=== PATIENT | female | born 1950 | race Caucasian/White ===

== ENCOUNTER 2017-04-28 15:40 | Inpatient (IN) | payer OTHER ==
[~2017-04-28] VITALS: Ht 170.1 cm; Wt 113.4 kg
--- NOTE | ~2017-04-28 | PR ---
[place], [place] PROGRESS NOTE [id number] UN[facility] #: [id number] ROOM: 316 DOCTOR: Clover AUGUSTINE,ROBBI BIRTHDATE: [birth year] DOS: 05/06/2017 SUBJECTIVE: The patient seen and spoke with the staff. Per staff, the patient is taking her medication. No behavioral problems or issues, doing well. Medication compliant. The patient was in the [place] chair. She was in the TV area watching TV. She reports doing well, did not engage in long conversation. She was not in any distress. MENTAL STATUS EXAMINATION: The patient was pleasant, cooperative. Described his mood as "well." Affect, mood congruent. She denied auditory or visual hallucination. No delusion or paranoia noted. She denied suicidal ideation, intent or plan. She also denied any homicidal ideation, intent or plan. ASSESSMENT: Major depressive disorder, recurrent, severe. PLAN: 1. Continue current medication and care. 2. A 1:1 therapy. Psychoeducation, coping skill. 3. Encourage activity and groups. ROBBI AUGUSTINE MD CM:JOVANI [id number] Clover AUGUSTINE 05/06/17 2343 interface
--- NOTE | ~2017-04-28 | DS ---
[place], [place] DISCHARGE SUMMARY NAME: EDITH AWAD UNIT #: [id number] ROOM: 316 DOCTOR: LANE IGLESIAS MD BIRTHDATE: [birth year] DOS: 05/10/2017 ADDENDUM CHIEF COMPLAINT: "I feel better Dr. Iglesias." SUMMARY OF THE VISIT: The patient was interviewed as she reclined in the dining area. She had completed her breakfast. She reports that she slept well and feels well. She denies any issues, stating that she feels better with her medicines as they are now and is ready to go back. She still voices a displeasure with the [facility]. I did discuss with her, her options of discussing with the family welfare social work professor there to help her find alternative placement and that if she is unhappy with any of the nursing issues, she has the right to discuss this with the handbell choir director of the facility. She nodded in approval. MENTAL STATUS: She is alert and oriented with gaps. Mood does seem to be euthymic. Affect appropriate. There is no hypomania or pj. There are no gross psychotic symptoms. Memory has some short term gaps. DISCHARGE DIAGNOSIS: As per the previous note and disposition. I will follow her upon her admission. LANE IGLESIAS MD CM:DISCHARG [id number]GL[address] MD 05/11/17 1015 interface
--- NOTE | ~2017-04-28 | PR ---
[place], [place] PROGRESS NOTE NAME: EDITH AWAD UNIT #: [id number] ROOM: 316 DOCTOR: LANE GUTIERREZ MD BIRTHDATE: [birth year] DOS: 05/02/2017 CHIEF COMPLAINT: "They had me sitting on plastic all day and now I have a blister." SUMMARY OF THE VISIT: The patient was interviewed in the dining area. She continues to be somewhat labile and jumps from topic to topic. She was fixated on sitting on plastic. When I brought up possibly returning back to [facility], she became very upset with that idea and stated she was hoping to be able to go someplace else. Nurses report she continues to exhibit extreme mood lability and at times can be very bizarre in her comments. She has tolerated the medication regimen well and I see no tardive dyskinesia, extrapyramidal symptoms or any other type of side effects. MENTAL STATUS: She is alert and oriented with gaps. Mood does seem to still be labile. Affect at times is inappropriate. There are mild hypomanic symptoms. I did not elicit any psychotic symptoms during my interview. Memory has gaps. PLAN: I will load with Invega Sustenna 156 mg IM now, maintaining her on her oral Invega of 9 mg in the morning. We will reload shortly thereafter with another 156 mg to sustain a blood level. Plan to return to the [facility] or an alternative facility when psychiatrically stable. LANE GUTIERREZ MD CM:PNTRANS [id number] GUT[address]Z MD 05/02/1704 interface
--- NOTE | ~2017-04-28 | CON ---
[place], [place] REPORT OF CONSULTATION NAME: EDITH AWAD UNIT #: [id number] ROOM: 316 DOCTOR: RENEE NAZARIO ED.D (MICHELLE) BIRTHDATE: [birth year] DOS: 05/01/2017 HISTORY OF PRESENT ILLNESS: The patient is a 66-year-old female who is a resident of [facility] in [place], [place]. She is presently on the Behavioral Health Unit at [facility]. This patient states she is and she has no children. She does have 1 brother and 1 sister. She formerly worked in the [employer] department in the [employer]. Her family physician was Dr. Norton, but she states he left his office practice. Her medical history is pertinent for seizure disorder, hypertension, GERD, sciatica and schizoaffective disorder. Her medications Include insulin, Protonix, albuterol, metoprolol, vitamin D, lisinopril, Invega and Remeron. She denies any substance abuse issues whatsoever. This patient was awake, alert and oriented in all three spheres. She knew she was in [facility] and she knew the date. She denies any suicidal ideation or plan. She does not appear to be actively hallucinating, but she does have delusional thoughts. She has some delusional thoughts regarding her family physician and also her living situation. These are more related to her schizoaffective disorder as opposed to any type of dementia in my opinion. She is competent to make informed healthcare decisions and she does want to have a power of mergers and acquisitions attorney appointed, who will either be her brother or her sister. I suggested that would be a very good idea. In the meantime, she is competent to make informed healthcare decisions. DIAGNOSIS: Schizoaffective disorder. RECOMMENDATIONS: The patient is competent and should have a durable healthcare power of mergers and acquisitions attorney appointed in the event that she would need one in the future. Thank you very much for this consult. RENEE NAZARIO ED.D CM:CONSTR:REPORT OF CONSULTATION 1017 05/01/[address] GUTIERREZ MD
--- NOTE | ~2017-04-28 | WRIGHTHP ---
[place], [place] PATIENT HISTORY AND PHYSICAL EXAM NAME: EDITH AWAD UNIT #: [id number] ROOM: 311 DOCTOR: LANE GUTIERREZ MD BIRTHDATE: [birth year] DOS: 04/29/2017 CHIEF COMPLAINT: "They sent me here from that rehab place." HISTORY OF PRESENT ILLNESS: This is a 66-year-old white female who is a resident of the [facility]. The patient has been increasingly more depressed and despondent over the last week or 2 prior to this admission. On the day of admission, the patient began voicing extreme suicidal thoughts and later stated she had a plan and was going to rip cords out of the wall and tied them around her neck and hang herself. The patient was initially admitted here because of the depression and the suicidal thoughts; however, following her admission, nurses have reported that she is experiencing significant visual and auditory hallucinations. She has been seeing God and pulled God literally out of the jaquan to be down here on the ground. She has been moving out of the way for unforeseen others and she has been caught talking under her breath to unforeseen others as well. She is quite bizarre and very paranoid. She is admitted now to rule out organic factors and to stabilize on medication. PAST MEDICAL HISTORY: Remarkable for gait disturbance, unspecified disorder of the adrenal gland, seizure disorder, hypertension, GERD, sciatica, thyrotoxicosis and diabetes. MENTAL STATUS: The patient is alert and oriented. Mood seems very labile. Her responses are inappropriate and she darts from subject to subject. She is very hard to get to talk about the here and now. Her responses for the most part were inappropriate. I was not able to elicit any psychotic symptoms, but she was very guarded and suspicious of my presence and was not certain who I was. Memory has some gaps. DIAGNOSIS: Schizoaffective disorder. PLAN: I will go ahead and start Invega 6 mg in the morning. I have already started her on Remeron 15 mg at night to combat depression and aid sleep and improve appetite. We will engage her in individual and hodge milieu activity with the ultimate plan to return back to the [facility] or an alternative placement when stable. [place], [place] PATIENT HISTORY AND PHYSICAL EXAM NAME: EDITH AWAD UNIT #: [id number] ROOM: 311 DOCTOR: LANE GUTIERREZ MD BIRTHDATE: [birth year] [address] MD CM:HISPHYS:PATIENT HISTORY AND PHYSICAL EXAMINATION [address] GUT[address]Z MD 04/29/17903 interface
--- NOTE | ~2017-04-28 | PR ---
[place], [place] PROGRESS NOTE [id number] UNIT #: [id number] ROOM: 316 DOCTOR: Clover AUGUSTINE,ROBBI BIRTHDATE: [birth year] DOS: 05/07/2017 PSYCHIATRIC PROGRESS NOTE SUBJECTIVE: The patient seen and spoke with the staff. Per staff, the patient is more alert, still not walking and digging on some injured skin that she had on her body. The patient was pleasant, cooperative. She was on her bed. She said that she is doing well, says she does not know why she cannot walk anymore, but she will give her shot today. She is taking her medication regularly. She denied any side effect of it. She reports good sleep and appetite. MENTAL STATUS EXAMINATION: Pleasant, cooperative. Described her mood as "well." Affect, mood congruent. Thought processes are goal directed. No flight of ideas, loosening of association. She denies auditory or visual hallucination. No delusion or paranoia noted. She denies suicidal ideation, intent or plan. She also denied homicidal ideation, intent or plan. ASSESSMENT: Major depressive disorder, recurrent, severe. PLAN: 1. Continue current medication and care. 2. Encourage activities and groups. 3. Collateral information. 4. Final medication management and discharge plan with the regular team. ROBBI AUGUSTINE MD CM:JOVANI [phone] Clover AUGUSTINE 05/07/172349 interface
--- NOTE | ~2017-04-28 | PR ---
[place], [place] PROGRESS NOTE NAME: EDITH AWAD UNIT #: [id number] ROOM: 316 DOCTOR: LANE GUTIERREZ MD BIRTHDATE: [birth year] DOS: 05/08/2017 CHIEF COMPLAINT: "I had a nice weekend." SUMMARY OF THE VISIT: The patient was interviewed in the dining area. She had already eaten her breakfast and she was sitting there, watching television. She engaged readily in conversation and seemed fairly goal directed with me. Nurses report a slight trend toward improvement, although she still has episodes when she talks rather bizarrely and is very labile. These have become less frequent and less intense. She is tolerating the current medication regimen well. On mental status, she is alert and oriented with some time gaps. Mood does seem to be strongly trending towards euthymia. Affect is more appropriate. There is no pj or hypomania. There are no overt auditory or visual hallucinations. No delusions, no paranoia. Short term memory, intermediate, and porter baggage for the most part are intact. PLAN: I will reload with Invega Sustenna 156 mg IM today and then plan to maintain her on May 29 with a similar dose. Plan is to discharge then when psychiatrically stable. LANE GUTIERREZ MD CM:PNTRANS [id number] GUT[address]Z MD 05/08/17 1012 interface
--- NOTE | ~2017-04-28 | PR ---
[place], [place] PROGRESS NOTE NAME: EDITH AWAD UNIT #: [id number] ROOM: 316 DOCTOR: MANSI ESCALANTE,RENEE ORTEGA) BIRTHDATE: [birth year] DOS: 05/03/2017 SUBJECTIVE: At the present time, this patient is clearly delusional. In my opinion, she is not competent to make informed healthcare decisions or sign a durable power of commercial attorney for healthcare. I did complete guardianship papers for this patient, which will then be sent to the probate court in [facility]. I also discussed this at length with the patient's brother who will most likely be appointed guardian. RECOMMENDATION: In my opinion, this patient is not competent to make informed healthcare decisions. DIAGNOSIS: Schizoaffective disorder. Thank you very much for this consultation. RENEE NAZARIO ED.D CM:JOVANI [phone] NAZARIO ED.D (BOB) 05/03/172118 interface
--- NOTE | ~2017-04-28 | DS ---
[place], [place] [facility]CHARGE [id number] UNIT #: [id number] ROOM: 316 DOCTOR: LANE GUTIERREZ MD BIRTHDATE: [birth year] DOS: 05/09/2017 CHIEF COMPLAINT: "They sent me here from that rehab place." HISTORY OF PRESENT ILLNESS: This is a 66-year-old white female who is a resident of the [facility]. The patient had been increasingly more depressed and despondent over the last 2 weeks prior to this admission to the [facility] unit. The patient has been voicing extreme suicidal thoughts and then started stating that she had a plan and she was going to rip cords out of the wall and tie them around her neck and hang herself. When nurses were not monitoring her closely, she did attempt this and that she had to be redirected on multiple times. Upon admission to the unit, the patient was also actively psychotic. She was responding to unforeseen others. She reported that she was taking God out of the jaquan and bringing Him to her. She was found often times talking under her breath and muttering nonsensical speech. She ultimately is admitted now to rule out organic factors to stabilize on medication, returning to the [facility] or an alternative placement when stable. PAST MEDICAL HISTORY: Remarkable for gait disturbance, unspecified disorder of the adrenal gland, seizure disorder, hypertension, GERD, sciatica, thyrotoxicosis and diabetes. SUMMARY OF HOSPITAL COURSE: The patient was admitted to the unit where her Seroquel was discontinued in lieu of Invega 6 mg in the morning. She tolerated this well and this was ultimately increased to 9 mg in the morning and then subsequently she was loaded with Invega Sustenna 234 mg IM and later given a secondary loading dose of 156 mg. With the Invega on board, the patient did have her psychosis break. Remeron was utilized as an antidepressant which did aid sleep and appetite dramatically. The depression as well broke and she was much more pleasant and cooperative. She voiced no suicidal thoughts, no homicidal thoughts. She voiced no side effects from the medications themselves. While ready to leave the hospital, she did voice a displeasure with the [facility] and requested that alternative placement be found. I did discuss this with her that this can be done through the [facility] and that our pediatric social worker will discuss this issue with the pediatric social worker at that particular facility. The patient was discharged then back to the [facility] where I will follow her upon her readmission there. MENTAL STATUS AT DISCHARGE: The patient is alert and oriented with some time gaps. Mood was strongly trending towards euthymia. Affect appropriate. No symptoms of pj or hypomania were noted. No overt auditory or visual hallucinations. No delusions, no paranoia. Short term memory had gaps, otherwise she was intact. FINAL DIAGNOSES: Schizoaffective disorder. PLAN: The patient will be discharged to the [facility]. All of her prescriptions except for a vitamin D prescriptions have been e-scribed to the institutional pharmacy on record. Vitamin D prescription will be sent with her. [place], [place] DISCHARGE SUMMARY NAME: EDITH AWAD UNIT #: [id number] ROOM: 316 DOCTOR: LANE GUTIERREZ MD BIRTHDATE: [birth year] I will follow her upon her readmission to the [place]. LANE GUTIERREZ MD CM:BHASKAR [id number]UT[address]Z MD 05/09/17 1002 interface
--- NOTE | ~2017-04-28 | PR ---
[place], [place] PROGRESS NOTE NAME: EDITH AWAD UNIT #: [id number] ROOM: 316 DOCTOR: LANE IGLESIAS MD BIRTHDATE: [birth year] DOS: 05/01/2017 CHIEF COMPLAINT: "Oh Dr. Iglesias, I am just not feeling well." SUMMARY OF THE VISIT: The patient was interviewed in the dining area where she continued to offer a plethora of somatic complaints. She continues to jump from topic to topic and is rather disorganized in her presentation. She reports to me that she is sleeping better and eating better, but complains of some pain in her back and also some dryness in her mouth and lips. MENTAL STATUS: She is alert and oriented with time gaps. Mood does seem to be labile. Affect inappropriate. She is somewhat tangential at times. There is some processing slowness as well. She is tolerating the current medication well and I see no sedation, somnolence, extrapyramidal symptoms or tardive dyskinesia. PLAN: I will increase her Invega from 6 to 9 mg in the morning to attempt to decrease some of the mood lability and help organize her. We will consider switching her to Invega Sustenna, engage in individual and hodge milieu activity, returning back to the [facility] or an alternative placement when psychiatrically stable. LANE IGLESIAS MD CM:PNTRANS [id number]GL[address] MD 05/01/17 1044 interface
--- NOTE | ~2017-04-28 | PR ---
[place], [place] PROGRESS NOTE NAME: EDITH AWAD UNIT #: [id number] ROOM: 316 DOCTOR: LANE GUTIERREZ MD BIRTHDATE: [birth year] DOS: 04/30/2017 CHIEF COMPLAINT: "My bottom and my back hurts." SUMMARY OF THE VISIT: The patient was interviewed as she sat in the dining area. She had a stuffed animal stuff down the front of her shirt. She continues to give very odd and peculiar responses. Nurses report similarly she has been somewhat bizarre in her responses, talking about letting children in to have sex, etc. She is tolerating the current medication regimen well. Nurses note that she is not sleeping well at night and this has been a persistent issue. MENTAL STATUS: She remains alert and oriented with gaps. Mood does seem to be labile. Affect inappropriate. Responses are bizarre. She does seem to be delusional and hallucinating. PLAN: I will discontinue her Remeron as it is ineffective. I will start trazodone 150 mg at bedtime, not only to aid sleep, but to be an antidepressant at that dose. She is tolerating the Invega well. I worry about episodic noncompliance with her, so I will start her on Invega Sustenna 234 mg IM today and plan a secondary loading dose soon, engage in individual and hodge milieu activity, returning to the least restrictive environment when stable. LANE GUTIERREZ MD CM:PNTRANS [id number] GUT[address]Z MD 05/01/17 0034 interface
[2017-04-28] MEDS ORDERED: OXYGEN NAS (16:14)
[2017-04-28] MEDS ORDERED: AMBIEN5 MG PO (16:15)
[2017-04-28] MEDS ORDERED: SEROQUEL100 MG PO (16:17)
[2017-04-28] MEDS ORDERED: DUONEB 3 MG/3 ML3 M1 INH ×2 (16:18→16:45)
[2017-04-28] MEDS ORDERED: BENAZEPRIL20 MG PO (16:18)
[2017-04-28] MEDS ORDERED: GLUCOPHAGE1000 MG PO (16:46)
[2017-04-28] MEDS ORDERED: VITAMIN D50000 UNIT PO (16:46)
[2017-04-28] MEDS ORDERED: Lovenox40 MG/0.4 PO (16:47)
[2017-04-28] MEDS ORDERED: LEVAQUIN500 M2 PO (16:47)
[2017-04-28] MEDS ORDERED: METHIMAZOLE10 MG PO (16:49)
[2017-04-28] MEDS ORDERED: LOPRESSOR25 MG PO (16:49)
[2017-04-28] MEDS ORDERED: PROTONIX40 MG PO (16:50)
[2017-04-28] MEDS ORDERED: MIRALAX17 GM PO (16:50)
[2017-04-28] MEDS ORDERED: POTASSIUM CHLO10 ME4 PO (16:50)
[2017-04-28] MEDS ORDERED: ZANTAC 300300 MG PO (16:51)
[2017-04-28] MEDS ORDERED: PROBIOTIC250 MG PO (16:51)
[2017-04-28] MEDS ORDERED: SENNA8.6 MG PO (16:52)
[2017-04-28] MEDS ORDERED: ROBITUSSIN5 ML PO (16:52)
[2017-04-28] MEDS ORDERED: TRAMADOL HCL50 MG PO (16:52)
[2017-04-28] MEDS ORDERED: XANAX0.5 MG PO (16:53)
[2017-04-28 18:21] VITALS: BP 140/82
[2017-04-28 20:00] VITALS: BP 140/82
[2017-04-28 21:55] VITALS: BP 140/82
[2017-04-29 07:56] VITALS: BP 142/76
[2017-04-29 09:03] LABS: BASO % 0.2 % (0.0-1.0); EOS % 0.3 % (1.0-4.0); HEMATOCRIT 29.7 % (37.0-47.0); HEMOGLOBIN 9.6 g/dl (12.0-16.0); LYMPH % 20.8 % (27.0-41.0); MEAN CELL VOLUME 81.4 fl (81.0-99.0); MEAN CORPUSCULAR HGB 26.3 pg (27.0-31.0); MEAN CORPUSCULAR HGB CONC 32.3 g/dl (33.0-37.0); MEAN PLATELET VOLUME 10.7 fl (9.6-12.3); MONO # 0.8 10*3/uL (0.1-1.0); MONO % 8.3 % (3.0-9.0); NEUT # 6.8 10*3/uL (2.3-7.9); NEUT % 69.4 % (47.0-73.0); PLATELET COUNT AUTOMATED 414 10*3/uL (130-400); RED BLOOD COUNT 3.65 10*6/uL (4.10-5.10); RED CELL DISTRI WIDTH 15.8 % (0-14.5); WHITE BLOOD COUNT 9.8 10*3/uL (4.8-10.8)
[2017-04-29 09:20] LABS: ALBUMIN 2.5 gm/dl (3.1-4.5); ALKALINE PHOSPHATASE 160 U/L (45-117); BUN 17 mg/dl (7-24); CHLORIDE 103 mmol/L (98-107); CHOLESTEROL 125 mg/dL (<200); CREATININE 0.93 mg/dL (0.55-1.02); HDL CHOLESTEROL 38 mg/dl (40-60); LDL CHOLESTEROL 65 mg/dL (9-159); POTASSIUM 3.5 mmol/L (3.5-5.1); SGOT/AST 23 IU/L (3-35); SGPT/ALT 38 U/L (12-78); SODIUM 138 mmol/L (136-145); TOTAL PROTEIN 7.2 gm/dL (6.4-8.2); TRIGLYCERIDES 112 mg/dl (<150); VLDL CHOLESTEROL 22 mg/dL (6-40)
[2017-04-29 09:27] LABS: THYROID STIM HORMONE (HS) 0.751 uIU/ml (0.358-4.75)
[2017-04-29 10:01] LABS: VITAMIN D, 25-HYDROXY 34.1 ng/mL (30-100)
[2017-04-29 20:07] VITALS: BP 140/78
[2017-04-30 08:03] VITALS: BP 140/68
[2017-04-30 20:00] VITALS: BP 124/64
[2017-05-01 08:11] VITALS: BP 136/76
[2017-05-01 19:55] VITALS: BP 124/58
[2017-05-02 08:48] VITALS: BP 134/80
[2017-05-02 20:05] VITALS: BP 126/52
[2017-05-03 07:52] VITALS: BP 142/83
[2017-05-03 20:00] VITALS: BP 126/80
[2017-05-04 08:00] VITALS: BP 132/63
[2017-05-04 20:49] VITALS: BP 144/78
[2017-05-05 08:03] VITALS: BP 126/52
[2017-05-05 20:00] VITALS: BP 129/56
[2017-05-06 08:07] VITALS: BP 112/62
[2017-05-06 19:57] VITALS: BP 129/60
[2017-05-07 08:00] VITALS: BP 116/64
[2017-05-07 20:16] VITALS: BP 136/72
[2017-05-08 08:10] VITALS: BP 124/62
[2017-05-08 19:50] VITALS: BP 143/66
[2017-05-09 08:04] VITALS: BP 142/78
[2017-05-09] MEDS ORDERED: INVEGA SUSTENN156 MG IM (09:41)
[2017-05-09] MEDS ORDERED: INVEGA9 MG PO (09:41)
[2017-05-09] MEDS ORDERED: BIOTENE MOIST44.3 ML PO (09:41)
[2017-05-09] MEDS ORDERED: TRAZODONE150 MG PO (09:41)
[2017-05-09] MEDS ORDERED: ROZEREM8 MG PO (09:41)
[2017-05-09] MEDS ORDERED: Vitamin D PO (09:41)
[2017-05-09 20:00] VITALS: BP 108/64
[2017-05-10 07:35] VITALS: BP 136/74
== END 2017-05-10 15:26 | disposition home or self-care (01) | DRG 885 ==
LOC: 3N 15:40
PROVIDERS: Psychiatry & Neurology Psychiatry
DX: F25.1 Schizoaffective disorder, depressive type (principal); E11.42 Type 2 diabetes mellitus with diabetic polyneuropathy; R45.851 Suicidal ideations; M54.9 Dorsalgia, unspecified; I10 Essential (primary) hypertension; F41.9 Anxiety disorder, unspecified; K21.9 Gastro-esophageal reflux disease without esophagitis; G40.909 Epilepsy, unspecified, not intractable, without status epilepticus; E27.9 Disorder of adrenal gland, unspecified; E05.90 Thyrotoxicosis, unspecified without thyrotoxic crisis or storm; K59.09 Other constipation; M54.30 Sciatica, unspecified side; Z88.0 Allergy status to penicillin; Z88.2 Allergy status to sulfonamides; Z91.048 Other nonmedicinal substance allergy status; Z79.84 Long term (current) use of oral hypoglycemic drugs; Z99.81 Dependence on supplemental oxygen; Z79.899 Other long term (current) drug therapy